=== PATIENT | male | born 1980 | race Caucasian/White ===

== ENCOUNTER 2020-03-05 21:01 | Emergency (ER) | payer MEDICAID ==
[~2020-03-05] VITALS: Ht 175.3 cm; Wt 81.6 kg
[2020-03-05 21:25] VITALS: BP 192/98
== END 2020-03-06 01:34 | disposition left against medical advice (07) ==
LOC: ER 21:09
DX: R10.9 Unspecified abdominal pain (principal); Z53.21 Procedure and treatment not carried out due to patient leaving prior to being seen by health care provider